=== PATIENT | female | born 1995 | race Caucasian/White ===

== ENCOUNTER → 2022-05-16 14:39 | Outpatient (BNVA) | payer BC, SELFPAY | PROVIDERS: Family Provider Nurse Practitioner Family; PCP Family Medicine; Visit Provider Registered Nurse Neonatal Intensive Care | DX: N39.0 Urinary tract infection, site not specified (principal); J02.9 Acute pharyngitis, unspecified; R05.8 Other specified cough; Z20.822 Contact with and (suspected) exposure to COVID-19; Z20.2 Contact with and (suspected) exposure to infections with a predominantly sexual mode of transmission | CPT/HCPCS: 81000; 81025; 87071; 87426; 87491; 87591; 87661; 87880 ==

== ENCOUNTER 2022-06-15 06:52 | Outpatient (CLI) | payer BC, SELFPAY ==
--- NOTE | 2022-06-15 | US_ITS ---
WS: [id number] ULTRASOUND SOFT TISSUES RIGHT upper abdomen. HISTORY: Palpable area. COMPARISON: None available. TECHNIQUE: 2-D and color Doppler imaging is submitted. Patient directed save all operator to the palpable area in the RIGHT upper abdomen and lower thorax. No ult rasound abnormality is identified. Normal appearance of the soft tissues. There is no distortion or i ncreased vascularity. US/US chest [id number] IMPRESSION: Normal soft tissue ultrasound RIGHT upper abdomen in the area of the palpable a bnormality.
== END 2022-06-15 06:53 | disposition home or self-care (01) ==
PROVIDERS: PCP Family Medicine; Visit Provider Nurse Practitioner Family
DX: R22.2 Localized swelling, mass and lump, trunk (principal)
CPT/HCPCS: 76604